=== PATIENT | female | born 1955 | race Two or more races ===

== ENCOUNTER → 2024-10-28 | Outpatient (CLI) | payer MEDICARE, MEDICAID, SELFPAY ==
--- NOTE | 2024-10-28 08:30 | XR_ITS ---
Examination: Abdomen sonogram, complete Date and time of exam: October 28, 2024 0836 hours INDICATIONS: Elevated liver enzymes on laboratory examination performed one month ago. Technique: Multiple real-time grayscale transabdominal sonographic images of the abdomen have been obtained. Findings: Absent gallbladder Common bile duct 10 mm no stones Pancreatic head 2.5 cm Aorta not enlarged. Liver 15.2 cm fatty infiltration Normal hepatopedal portal venous flow Patent IVC Right kidney 8.5 cm cortex 1.3 cm Left kidney 9.5 cm cortex 1.3 cm Mild renal parenchymal scar formation Solid mass lateral to the left kidney 7.1 x 5.7 x 5.4 cm Spleen not enlarged IMPRESSION: Absent gallbladder No common bile duct stones Recommend CT scan abdomen pelvis follow-up to exclude mass lateral to the left kidney, 7.1 cm
== END | disposition home or self-care (01) ==
LOC: CDIM 08:13
PROVIDERS: PCP Family Medicine; Referring Provider Internal Medicine Hematology & Oncology; Visit Provider Internal Medicine Hematology & Oncology
DX: K76.0 Fatty (change of) liver, not elsewhere classified (principal); N28.89 Other specified disorders of kidney and ureter; R19.00 Intra-abdominal and pelvic swelling, mass and lump, unspecified site
CPT/HCPCS: 76700